=== PATIENT | male | born 1995 | race American Indian/Alaskan Native ===

== ENCOUNTER 2023-06-23 21:16 | Emergency (ER) | payer SELFPAY ==
[2023-06-23 22:53] LABS: APPEARANCE,URINE CLEAR (CLEAR); BILIRUBIN,URINE NEGATIVE (NEGATIVE); COLOR,URINE YELLOW (YELLOW); GLUCOSE,URINE NEGATIVE (NEGATIVE); KETONES,URINE NEGATIVE (NEGATIVE); LEUKOCYTE ESTERASE,URINE NEGATIVE (NEGATIVE); NITRITE,URINE NEGATIVE (NEGATIVE); OCCULT BLOOD,URINE NEGATIVE (NEGATIVE); PH,URINE 6.5 (5.0-9.0); PROTEIN,URINE NEGATIVE (NEGATIVE); UROBILINOGEN,URINE 0.2 mg/dL (0.2-1.0)
== END 2023-06-23 23:41 | disposition home or self-care (01) ==
LOC: DL.ED 21:16
DX: N50.812 Left testicular pain (principal)
CPT/HCPCS: 76870; 81003; 87491; 87563; 87591; 99283; 99284

== ENCOUNTER 2023-08-09 10:13 | Emergency (ER) | payer MEDICAID ==
[2023-08-09] MEDS: Naproxen 250 MG Tab PO ONE (10:44)
== END 2023-08-09 11:06 | disposition home or self-care (01) ==
LOC: DL.ED 10:13
DX: R07.89 Other chest pain (principal); Z88.1 Allergy status to other antibiotic agents; Z91.018 Allergy to other foods; Z88.0 Allergy status to penicillin
CPT/HCPCS: 71045; 93010; 99284; 99285; A9270

== ENCOUNTER 2023-10-19 23:13 | Emergency (ER) | payer MEDICAID | END 2023-10-20 00:03 | disposition left against medical advice (07) | LOC: DL.ED 23:13 | DX: J02.9 Acute pharyngitis, unspecified (principal); Z88.0 Allergy status to penicillin; Z91.018 Allergy to other foods | CPT/HCPCS: 99283 ==

== ENCOUNTER 2023-12-09 17:45 | Emergency (ER) | payer MEDICAID | END 2023-12-09 18:37 | disposition left against medical advice (07) | LOC: DL.ED 17:45 | DX: Z53.21 Procedure and treatment not carried out due to patient leaving prior to being seen by health care provider (principal) ==

== ENCOUNTER 2023-12-09 20:19 | Emergency (ER) | payer MEDICAID ==
[2023-12-09 21:22] LABS: APPEARANCE,URINE CLEAR (CLEAR); BILIRUBIN,URINE NEGATIVE (NEGATIVE); COLOR,URINE YELLOW (YELLOW); GLUCOSE,URINE NEGATIVE (NEGATIVE); KETONES,URINE NEGATIVE (NEGATIVE); LEUKOCYTE ESTERASE,URINE NEGATIVE (NEGATIVE); NITRITE,URINE NEGATIVE (NEGATIVE); OCCULT BLOOD,URINE NEGATIVE (NEGATIVE); PH,URINE 6.5 (5.0-9.0); PROTEIN,URINE NEGATIVE (NEGATIVE); UROBILINOGEN,URINE 0.2 mg/dL (0.2-1.0)
[2023-12-14 12:47] LABS: C.TRACHOMATIS BY TMA Negative (Negative); M GENITALIUM Negative (Negative); M GENITALIUM SOURCE Urine; N.GONORRHOEAE BY TMA Negative (Negative); SOURCE Urine
== END 2023-12-09 22:23 | disposition home or self-care (01) ==
LOC: DL.ED 20:19
DX: R10.30 Lower abdominal pain, unspecified (principal); Z88.0 Allergy status to penicillin; Z91.018 Allergy to other foods
CPT/HCPCS: 81003; 87491; 87563; 87591; 99283; 99284